=== PATIENT | male | born 2005 | race Caucasian/White ===

== ENCOUNTER 2024-07-04 09:52 | Day surgery (SDC) | payer BC, OTHER ==
[2024-07-04] MEDS ORDERED: Midazolam 1 MG/ML 2 ML SDV IV ONE (09:53)
[2024-07-04] MEDS: Lactated Ringers 1,000 ML IV SCH (10:15)
[2024-07-04] MEDS ORDERED: Sodium Chloride 0.9% 10 ML Syringe FLUSH PRN (10:15)
[2024-07-04] MEDS ORDERED: Midazolam 1 MG/ML 2 ML SDV ONE ×2 (10:41→10:43)
[2024-07-04] MEDS ORDERED: Propofol 200 MG/20 ML SDV ONE (10:41)
== END 2024-07-04 13:32 | disposition home or self-care (01) ==
LOC: KA.SDS 09:52
PROVIDERS: ATTEND Family Medicine
DX: K64.8 Other hemorrhoids (principal); Z80.0 Family history of malignant neoplasm of digestive organs
CPT/HCPCS: 00811; J2250; J2704; J3490; J7120

== ENCOUNTER 2024-09-19 17:58 | Emergency (ER) | payer BC | END 2024-09-19 19:05 | disposition home or self-care (01) | LOC: KA.ED 17:58 | DX: J06.9 Acute upper respiratory infection, unspecified (principal); Z91.048 Other nonmedicinal substance allergy status | CPT/HCPCS: 99283 ==